=== PATIENT | male | born 1970 | race Caucasian/White ===

== ENCOUNTER 2018-04-03 18:26 | Emergency (ER) | payer SELFPAY ==
[2018-04-03 18:53] VITALS: BP 139/93
[2018-04-03] MEDS ORDERED: Albuterol 0.083% 2.5 MG/3 ML Neb Soln NEB ONE (19:25)
[2018-04-03] MEDS ORDERED: Ketorolac 30 MG/ML SDV IVPUSH ONE (19:25)
[2018-04-03] MEDS ORDERED: Sodium Chloride 0.9% 1,000 ML IV SCH ×2 (19:30→21:30)
[2018-04-03] MEDS: cefTRIAXone 2 GM in Sodium Chloride 0.9% 50 ML IV ONE (19:47)
--- NOTE | 2018-04-03 19:51 | EDM.PDOC ---
ED HPI GENERAL MEDICAL PROBLEM - General Chief Complaint: Respiratory Problem Stated Complaint: PAIN ON RIGHT SIDE/CHEST COLD Time Seen by Provider: 04/03/18 19:05 Source of Information: Reports: Patient History Limitations: Reports: No Limitations - History of Present Illness INITIAL COMMENTS - FREE TEXT/NARRATIVE: Right-sided chest pain with cough; this is a 47-year-old male presents emergency room by private vehicle, reports 3 days ago pulled his right rib and chest area while putting out., since then developed a worsening cough painful chest, fever, chills, dizziness. Also reports muscle and body aches. Dear tick/Lyme's disease exposure.: He also reports removed 3 deer ticks from the back of his head that were engorged. One area was infected and draining he did put some medicine on the wound. He did not treatment for deer tick bites. Onset: Gradual Onset Date: 03/31/18 Duration: Day(s): (3), Getting Worse Location: Reports: Chest, Generalized (Fever chills not feeling well.\) Quality: Reports: Other Severity: Moderate (Painful cough.) Improves with: Reports: None Worsens with: Reports: None Associated Symptoms: Reports: Chest Pain (Right-sided), Cough, Fever/Chills, Loss of Appetite, Shortness of Breath right ribs Pain Score (Numeric/FACES): 3 - Related Data Allergies Allergy/AdvReac Type Severity Reaction Status Date / Time Horse/Equine Containing Allergy Other Verified 04/03/18 18:59 Products Home Meds: Home Meds NK [No Known Home Meds] 03/12/15 [History] Past Medical History Musculoskeletal History: Reports: Fracture Neurological History: Reports: Brain Injury, Concussion Other Neuro History: aug 2014 concussion Psychiatric History: Reports: PTSD Dermatologic History: Reports: Eczema - Past Surgical History Neurological Surgical History: 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 Dermatological Surgical History: Reports: Plastic Surgical Reconstruction/Repair Social & Family History - Tobacco Use Smoking Status *Q: Never Smoker - Alcohol Use Days Per Week of Alcohol Use: 1 Number of Drinks Per Day: 3 Total Drinks Per Week: 3 - Recreational Drug Use Recreational Drug Use: No ED ROS GENERAL - Review of Systems Review Of Systems: See Below Constitutional: Reports: Fever, Chills, Malaise, Weakness, Fatigue HEENT: Reports: No Symptoms Respiratory: Reports: Shortness of Breath, Wheezing, Pleuritic Chest Pain (Right -sided), Cough, Sputum (Light to yellow) Cardiovascular: Reports: Lightheadedness Endocrine: Reports: Fatigue GI/Abdominal: Reports: No Symptoms : Reports: No Symptoms Musculoskeletal: Reports: Back Pain (Right sided upper back pain), Muscle Pain Skin: Reports: Other (3 dear tick puncture wounds to the base of neck) Neurological: Reports: No Symptoms Psychiatric: Reports: No Symptoms Hematologic/Lymphatic: Reports: No Symptoms Immunologic: Reports: No Symptoms ED EXAM, GENERAL - Physical Exam Exam: See Below Exam Limited By: No Limitations General Appearance: Alert, WD/WN, No Apparent Distress Eye Exam: Bilateral Eye: Normal Inspection Ears: Normal External Exam, Normal Canal, Hearing Grossly Normal, Normal TMs Ear Exam: Bilateral Ear: Auricle Normal, Canal Normal, TM normal Nose: Normal Inspection, Normal Mucosa, No Blood Throat/Mouth: Normal Inspection, Normal Lips, Normal Teeth, Normal Gums, Normal Oropharynx, Normal Voice, No Airway Compromise Head: Atraumatic, Normocephalic Neck: Supple, Lymphadenopathy (R), Lymphadenopathy (L), Other (3 puncture wounds noted to the base of neck from midline to left) Respiratory/Chest: No Accessory Muscle Use, Decreased Breath Sounds, Crackles, Rhonchi, Wheezing Cardiovascular: Regular Rate, Rhythm, No Murmur GI/Abdominal: Normal Bowel Sounds, Soft, Non-Tender, No Organomegaly, No Distention, No Abnormal Bruit, No Mass (Male) Exam: Deferred Rectal (Males) Exam: Deferred Back Exam: Normal Inspection, Full Range of Motion Extremities: Normal Inspection, Normal Range of Motion, Non-Tender, No Pedal Edema, Normal Capillary Refill Neurological: Alert, Oriented, CN II-XII Intact, Normal Cognition, No Motor/ Sensory Deficits Psychiatric: Normal Affect, Normal Mood Skin Exam: Warm, Dry, Wound/Incision (3 puncture wounds noted to the base of the neck circular raised lesions with surrounding erythema, no discharge), Other (Sunburn to anterior chest.) Lymphatic: Adenopathy (Bilateral upper cervical neck) Course - Vital Signs Last Recorded V/S: Last Vital Signs Temp 37.6 C 04/03/18 19:04 Pulse 102 H 04/03/18 19:04 Resp 20 04/03/18 19:04 BP 139/93 H 04/03/18 19:04 Pulse Ox 97 06/28/18 19:04 - Orders/Labs/Meds Orders: Active Orders 24 hr Category Date Time Status RT Aerosol Therapy [RC] ASDIRECTED Care 04/03/18 19:26 Active Chest 2V [CR] Urgent Exams 04/03/18 19:24 Taken ALKALINE PHOSPHATASE [CHEM] Stat Lab 04/03/18 21:18 Ordered LYME, TOTAL AB TEST/REFLEX Urgent Lab 04/03/18 19:58 Received Sodium Chloride 0.9% [Normal Saline] 1,000 ml Med 04/03/18 19:30 Active IV ASDIRECTED Sodium Chloride 0.9% [Normal Saline] 1,000 ml Med 04/03/18 21:30 Active IV ASDIRECTED Medication Orders Sodium Chloride (Normal Saline) 1,000 mls @ 999 mls/hr IV ASDIRECTED DEWAYNE Last Admin: 04/03/18 19:46 Dose: 999 mls/hr Sodium Chloride (Normal Saline) 1,000 mls @ 999 mls/hr IV ASDIRECTED DEWAYNE Labs: Laboratory Tests 04/03/18 04/03/18 Range/Units 19:24 19:36 WBC 14.7 H (4.5-11.0) K/uL RBC 5.14 (4.30-5.90) M/uL Hgb 14.7 (12.0-15.0) g/dL Hct 43.8 (40.0-54.0) % MCV 85 (80-98) fL MCH 29 (27-31) pg MCHC 34 (32-36) % Plt Count 225 (150-400) K/uL Neut % (Auto) 74 H (36-66) % Lymph % (Auto) 13 L (24-44) % [place] % (Auto) 11 H (2-6) % Eos % (Auto) 1 L (2-4) % Baso % (Auto) 0 (0-1) % Sodium 134 L (140-148) mmol/L Potassium 3.7 (3.6-5.2) mmol/L Chloride 100 (100-108) mmol/L Carbon Dioxide 27 (21-32) mmol/L Anion Gap 10.7 (5.0-14.0) mmol/L BUN 10 (7-18) mg/dL Creatinine 1.2 D (0.8-1.3) mg/dL Est Cr Clr Drug Dosing 89.72 mL/min Estimated GFR (MDRD) > 60 (>60) Glucose 142 H (74-106) mg/dL Calcium 9.3 (8.5-10.1) mg/dL Meds: Medications Generic Name Dose Route Start Last Admin Trade Name Freq PRN Reason Stop Dose Admin Sodium Chloride 1,000 mls @ 999 mls/hr 04/03/18 19:30 04/03/18 19:46 Normal Saline IV 999 mls/hr ASDIRECTED DEWAYNE Administration Sodium Chloride 1,000 mls @ 999 mls/hr 04/03/18 21:30 Normal Saline IV ASDIRECTED DEWAYNE Discontinued Medications Generic Name Dose Route Start Last Admin Trade Name Freq PRN Reason Stop Dose Admin Albuterol 2.5 mg 04/03/18 19:25 04/03/18 19:47 Proventil Neb Soln NEB 04/03/18 19:26 2.5 mg ONETIME ONE Administration Ceftriaxone Sodium 2 gm/ 50 mls @ 100 mls/hr 04/03/18 19:25 04/03/18 19:47 Sodium Chloride IV 04/03/18 19:54 100 mls/hr ONETIME ONE Administration Ketorolac Tromethamine 30 mg 04/03/18 19:25 04/03/18 19:46 Toradol IVPUSH 04/03/18 19:26 30 mg ONETIME ONE Administration - Re-Assessments/Exams Free Text/Narrative Re-Assessment/Exam: 04/03/18 19:53 This was discussed with patient will rule out pneumonia versus Lyme's disease. Labs; CBC, BMP, tick panel Imaging: Chest PA and lateral Medications: Rocephin 2 g IV, normal saline 1 L, Toradol 30 mg IV Patient agrees with plan of care. 04/03/18 21:35 Patient is resting comfortably after nebulizer treatment Chest: Lungs are clear, no wheezing, rhonchi, or crackles. Normal respiratory effort Chest x-ray no infiltrates are noted Labs; elevated WBC 14.7, and will been 14.7, hematocrit 43.8, platelets 225, 674 , lymphs 13, eosinophils 1. Chemistries sodium 134, potassium 3.7, chloride 100 , anion gap 10.7, BUN 10, creatinine 1.2 last creatinine 0.07, glucose 142, calcium 9.3, tick panel pending. plan to discharge to home, will treat for Lyme's disease and lower respiratory infection. discharge medications Doxy 100 mg by mouth twice a day Robitussin-AC 10 ML's every 4 when necessary painful cough, albuterol dose inhaler 2 puffs every 4 when necessary cough. Will advise follow-up with primary care for recheck in 3- 5 days. Return to ER or clinic or urgent care if has increased pain, fever, chills, nausea, vomiting, rash or not improved. Departure - Departure Time of Disposition: 21:47 Disposition: Home, Self-Care 01 Condition: Good Clinical Impression: Lower respiratory tract infection, Lyme disease, acute - Discharge Information Instructions: Tick Bite Information, Adult, [id number], Acute Bronchitis, Adult, [id number] Referrals: PCP,None [Primary Care Provider] - Forms: ED Department Discharge Care Plan Goals: Lyme's disease and lower respiratory infection. -Doxy 100 mg by mouth twice a day 14 days -Robitussin-AC 10 ML's every 4 when necessary painful cough -albuterol dose inhaler 2 puffs every 4 when necessary cough. -Lyme's test pending Will advise follow-up with primary care for recheck in 3-5 days. Return to ER or clinic or urgent care if has increased pain, fever, chills, nausea, vomiting, rash or not improved. - Problem List & Annotations (1) Lyme disease, acute SNOMED Code(s): 484051513 Code(s): A69.20 - LYME DISEASE, UNSPECIFIED Status: Acute Priority: High Current Visit: Yes (2) Lower respiratory tract infection SNOMED Code(s): 49480973 Code(s): J22 - UNSPECIFIED ACUTE LOWER RESPIRATORY INFECTION Status: Acute Priority: High Current Visit: Yes - Problem List Review Problem List Initiated/Reviewed/Updated: Yes - My Orders Last 24 Hours: My Active Orders 04/03/18 19:24 Chest 2V [CR] Urgent 04/03/18 19:26 RT Aerosol Therapy [RC] ASDIRECTED 04/03/18 19:30 Sodium Chloride 0.9% [Normal Saline] 1,000 ml IV ASDIRECTED 04/03/18 19:58 LYME, TOTAL AB TEST/REFLEX Urgent 04/03/18 21:18 ALKALINE PHOSPHATASE [CHEM] Stat 04/03/18 21:30 Sodium Chloride 0.9% [Normal Saline] 1,000 ml IV ASDIRECTED - Assessment/Plan Last 24 Hours: My Active Orders 04/03/18 19:24 Chest 2V [CR] Urgent 04/03/18 19:26 RT Aerosol Therapy [RC] ASDIRECTED 04/03/18 19:30 Sodium Chloride 0.9% [Normal Saline] 1,000 ml IV ASDIRECTED 04/03/18 19:58 LYME, TOTAL AB TEST/REFLEX Urgent 04/03/18 21:18 ALKALINE PHOSPHATASE [CHEM] Stat 04/03/18 21:30 Sodium Chloride 0.9% [Normal Saline] 1,000 ml IV ASDIRECTED Plan: Lyme's disease and lower respiratory infection. -Doxy 100 mg by mouth twice a day 14 days -Robitussin-AC 10 ML's every 4 when necessary painful cough -albuterol dose inhaler 2 puffs every 4 when necessary cough. -Lyme's test pending Will advise follow-up with primary care for recheck in 3-5 days. Return to ER or clinic or urgent care if has increased pain, fever, chills, nausea, vomiting, rash or not improved.
--- NOTE | 2018-04-04 08:52 | CR ---
CHEST: 2 view CLINICAL HISTORY:SOB COMPARISON:2013 FINDINGS: Heart and pulmonary vascularity are normal. No infiltrate effusion or pneumothorax seen. IMPRESSION: No acute cardiopulmonary process or significant change from prior study
[2018-04-07 10:11] LABS: LYME IGG/IGM AB <0.91 ISR (0.00-0.90)
== END 2018-04-03 22:38 | disposition home or self-care (01) ==
LOC: JP.ED 18:26
DX: J22 Unspecified acute lower respiratory infection (principal); A69.20 Lyme disease, unspecified
CPT/HCPCS: 36415; 71046; 80048; 84075; 85025; 94640; 96361; 96374; 99284; J0696; J1885; J7030; J7050; 86618

== ENCOUNTER 2019-12-19 18:59 | Emergency (ER) | payer MEDICAID ==
[2019-12-19 19:20] VITALS: BP 136/98; PULSE 83
[2019-12-19] MEDS ORDERED: Ondansetron 4 MG/2 ML SDV IM ONE (19:28)
--- NOTE | 2019-12-19 19:33 | EDM.PDOC ---
ED HPI GENERAL MEDICAL PROBLEM - General Chief Complaint: Abdominal Pain Stated Complaint: vomiting abd pain chills Time Seen by Provider: 12/19/19 19:22 Source of Information: Reports: Patient, Family History Limitations: Reports: No Limitations - History of Present Illness INITIAL COMMENTS - FREE TEXT/NARRATIVE: 49-year-old male 3 hours ago started eating some rice and only took 1 swallow and felt an epigastric pressure and nausea then had several episodes of emesis. Since that time he is having frequent recurring abdominal pressure and cramps and persistent nausea. No fevers or chills. No history of abdominal surgeries. Pain is central and radiates up into the epigastric area. He has had a couple of small BMs in the last 4 hours, no diarrhea. Onset: Sudden (Symptoms started fairly suddenly 4 hours ago) Duration: Hour(s): (3 to 4 hours) Location: Reports: Abdomen Quality: Reports: Other (Cramping, pressure sensation in his abdomen) Worsens with: Reports: Eating Associated Symptoms: Reports: Diaphoresis, Malaise, Nausea/Vomiting. 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 Denies: Fever, Chills HEENT: Reports: No Symptoms Respiratory: Denies: Shortness of Breath, Cough Cardiovascular: Denies: Chest Pain GI/Abdominal: Reports: Abdominal Pain, Nausea, Vomiting. Denies: Constipation, Diarrhea : Reports: No Symptoms Musculoskeletal: Reports: No Symptoms Skin: Reports: Diaphoresis Neurological: Denies: Headache ED EXAM, GI/ABD - Physical Exam Exam: See Below Exam Limited By: No Limitations General Appearance: Alert, No Apparent Distress (Looks uncomfortable but not distressed) Eyes: Bilateral: Normal Appearance (No jaundice) Head: Atraumatic Respiratory/Chest: No Respiratory Distress, Lungs Clear Cardiovascular: Regular Rate, Rhythm GI/Abdominal Exam: Tender (Fairly tender to palpation through the epigastric and left upper quadrant, no guarding), Other (Bowel sounds are hypoactive) Extremities: Normal Inspection Neurological: Alert, Oriented Psychiatric: Anxious Skin Exam: Warm, Dry Course - Vital Signs Last Recorded V/S: Last Vital Signs Temp 95.9 F L 12/19/19 19:19 Pulse 83 12/19/19 19:19 Resp 15 12/19/19 19:19 BP 136/98 H 12/19/19 19:19 Pulse Ox 99 12/19/19 19:19 - Orders/Labs/Meds Labs: Laboratory Tests 12/19/19 12/19/19 Range/Units 19:49 19:49 WBC 12.4 H (4.5-11.0) K/uL RBC 5.62 (4.30-5.90) M/uL Hgb 15.6 H (12.0-15.0) g/dL Hct 47.6 (40.0-54.0) % MCV 85 (80-98) fL MCH 28 (27-31) pg MCHC 33 (32-36) % Plt Count 208 (150-400) K/uL Neut % (Auto) 85 H (36-66) % Lymph % (Auto) 9 L (24-44) % [place] % (Auto) 5 (2-6) % Eos % (Auto) 1 L (2-4) % Baso % (Auto) 0 (0-1) % Sodium 138 L (140-148) mmol/L Potassium 4.1 (3.6-5.2) mmol/L Chloride 103 (100-108) mmol/L Carbon Dioxide 25 (21-32) mmol/L Anion Gap 14.1 H (5.0-14.0) mmol/L BUN 15 (7-18) mg/dL Creatinine 1.0 (0.8-1.3) mg/dL Est Cr Clr Drug Dosing 103.89 mL/min Estimated GFR (MDRD) > 60 (>60) Glucose 115 H (74-106) mg/dL Calcium 8.8 (8.5-10.1) mg/dL Total Bilirubin 0.5 (0.2-1.0) mg/dL AST 21 (15-37) U/L ALT 30 (12-78) U/L Alkaline Phosphatase 79 (46-116) U/L Total Protein 7.3 (6.4-8.2) g/dL Albumin 3.7 (3.4-5.0) g/dL Globulin 3.6 H (2.3-3.5) g/dL Albumin/Globulin Ratio 1.0 L (1.2-2.2) Lipase 88 (73-393) U/L Meds: Medications Discontinued Medications Generic Name Dose Route Start Last Admin Trade Name [place]q PRN Reason Stop Dose Admin Ondansetron HCl 8 mg 12/19/19 19:28 12/19/19 19:33 Zofran IM 12/19/19 19:29 8 mg ONETIME ONE Administration - Re-Assessments/Exams Free Text/Narrative Re-Assessment/Exam: 12/19/19 19:32 Patient will be given 8 mg of IM Zofran, CBC CMP and lipase were obtained. 12/19/19 20:24 After 30 minutes the Zofran did not seem to be giving him much relief, white count returned 12,400. CT of the abdomen and pelvis without contrast was ordered. CMP and lipase are still pending. 12/19/19 20:44 Complete chemistry profile is basically normal including lipase. CT of the abdomen looks normal, awaiting confirmation. 12/19/19 21:07 CT abdomen is completely normal. Asked the patient to just concentrate on fluids for the next 12 hours and then gradually advance diet as tolerated. Return in 24 to 48 hours if not improving satisfactorily. Departure - Departure Time of Disposition: 21:20 Disposition: Home, Self-Care 01 Clinical Impression: Nausea & vomiting Qualifiers: Vomiting type: unspecified Vomiting Intractability: non-intractable Qualified Code(s): R11.2 - Nausea with vomiting, unspecified - Discharge Information Instructions: Nausea and Vomiting, Adult, [id number] Referrals: PCP,None [Primary Care Provider] - Forms: ED Department Discharge Care Plan Goals: Rest tonight, fluids only, and increase diet over the next 12 to 24 hours. Consider rechecking in 24 to 48 hours if not improving satisfactorily. Sepsis Event Note - Evaluation Sepsis Screening Result: No Definite Risk - Focused Exam Vital Signs: Vital Signs Temp Pulse Resp BP Pulse Ox 12/19/19 19:19 95.9 F L 83 15 136/98 H 99 Date Exam was Performed: 12/19/19 Time Exam was Performed: 21:26
--- NOTE | 2019-12-19 21:04 | CRLCT ---
HISTORY: Abdominal pain, distention, and vomiting. TECHNIQUE: CT abdomen pelvis without contrast. COMPARISON: None. FINDINGS: Abdomen: Unenhanced liver, pancreas, spleen, and adrenal glands are unremarkable. No urinary tract calculi or hydronephrosis. No dilated bowel. Appendix is normal. No free fluid. No free intraperitoneal gas. No lymphadenopathy. Abdominal aorta is not dilated. Pelvis: No lymphadenopathy. Musculoskeletal: Subacute, healing bilateral costal cartilage fractures. Degenerative changes of the spine. L4 limbus vertebrae. Lower chest: Unremarkable. IMPRESSION: No acute abnormality in the abdomen or pelvis. Please note that all CT scans at this facility use dose modulation, iterative reconstruction, and/or weight-based dosing when appropriate to reduce radiation dose to as low as reasonably achievable. Dictated by Cameron Turner MD @ Dec 19 2019 8:54PM Signed by Dr. Cameron Turner @ Dec 19 2019 9:03PM
== END 2019-12-19 21:21 | disposition home or self-care (01) ==
LOC: JP.ED 18:59
DX: R11.2 Nausea with vomiting, unspecified (principal); F17.210 Nicotine dependence, cigarettes, uncomplicated; Z91.048 Other nonmedicinal substance allergy status
CPT/HCPCS: 36415; 74176; 80053; 83690; 85025; 96372; 99284; J2405